=== PATIENT | female | born 1975 | race Caucasian/White ===

== ENCOUNTER 2020-10-04 00:18 | Emergency (ER) | payer OTHER ==
--- NOTE | 2020-10-04 00:32 | ERPHSYRPT ---
- History of Present Illness Time Seen by Provider: 10/04/20 00:30 Source: patient Exam Limitations: no limitations Physician History: Patient is a 45-year-old female presents to our ED as a referral from her LVAD coordinator and her recording studio setup worker. Patient has an LVAD that has been displaying low flow alert, low-speed alert and power disconnect. Patient states that she has been having issues with her LVAD since yesterday. Patient did change the batteries and states the batteries are currently new. Patient contacted her heart pump coordinator who advised her to come to our ED for emergent transport to [facility]. Patient's heart pump coordinator is name Maribell. Patient's recording studio setup worker is Dr. Johns. Per Roxana we should obtain basic labs including digoxin level, LDH, coags. Patient is on digoxin. Patient is on Coumadin. Patient is currently asymptomatic. Patient denies chest pain or shortness of breath. No nausea vomiting or diaphoresis. She has no complaints. Patient states she is only anxious because of the current situation regarding her LVAD. We are currently arranging for [facility] to fly our patient to [facility]. [facility] has been notified and accepted our patient. Patient is currently on not on the heart transplant list. Patient states her weight precludes her from being a heart transplant candidate. However she states she is trying to lose weight. Severity: mild Associated Symptoms: denies symptoms Allergies/Adverse Reactions: morphine Allergy (Severe, Verified 10/04/20 00:39) meperidine [From Demerol] Allergy (Intermediate, Verified 10/04/20 00:38) Itching Home Medications: Amiodarone HCl 200 mg PO DAILY 10/04/20 [History] Cefepime HCl 1 gm [Maxipime 1 gm] 1 gm IV TID 10/04/20 [History] Clonazepam 0.5 mg PO TID 10/04/20 [History] Digoxin 0.125 mg Tablet [Lanoxin 0.125MG TABLET] 1 tab PO DAILY 10/04/20 [History] Ferrous Sulfate [Iron] 325 mg PO DAILY 10/04/20 [History] Furosemide [Lasix] 20 mg PO DAILY PRN PRN 10/04/20 [History] Metoprolol Tartrate 25 mg PO DAILY 10/04/20 [History] Potassium Chloride 10 meq PO DAILY PRN PRN 10/04/20 [History] Sertraline HCl 50 mg [Zoloft 50 mg Tablet] 200 mg PO DAILY 10/04/20 [History] Vit B12/Folic Acid/B6/Aa No.15 [Glycotrol Capsule] 1 cap PO DAILY 10/04/20 [History] Warfarin Sodium 4 mg PO DAILY 10/04/20 [History] - Review of Systems Constitutional: No Symptoms, No Fever, No Chills Eyes: No Symptoms Ears, Nose, & Throat: No Symptoms Respiratory: No Symptoms, No Cough, No Dyspnea Cardiac: No Symptoms, No Chest Pain, No Edema, No Syncope Abdominal/Gastrointestinal: No Symptoms, No Abdominal Pain, No Nausea, No Vomiting, No Diarrhea Genitourinary Symptoms: No Symptoms, No Dysuria Musculoskeletal: No Symptoms, No Back Pain, No Neck Pain Skin: No Symptoms, No Rash Neurological: No Symptoms, No Dizziness, No Focal Weakness, No Sensory Changes Psychological: No Symptoms Endocrine: No Symptoms Hematologic/Lymphatic: No Symptoms Immunological/Allergic: No Symptoms All Other Systems: Reviewed and Negative - Nursing Vital Signs Nursing Vital Signs: Initial Vital Signs Pulse Rate 96 H 10/04/20 00:27 Respiratory Rate 18 10/04/20 00:27 O2 Sat by Pulse Oximetry 98 10/04/20 00:27 Pain Scale Pain Intensity 0 - Physical Exam General Appearance: no apparent distress, alert Eye Exam: PERRL/EOMI, eyes nml inspection Ears, Nose, Throat Exam: normal ENT inspection, TMs normal, pharynx normal, moist mucous membranes Neck Exam: normal inspection, non-tender, supple, full range of motion Respiratory Exam: normal breath sounds, lungs clear, airway intact, No respira tory distress Cardiovascular Exam: normal heart sounds, normal peripheral pulses, other (Machine whirring sound consistent with LVAD function. No palpable pulses consistent with LVAD function.) Gastrointestinal/Abdomen Exam: soft, normal bowel sounds, No tenderness, No mass Back Exam: normal inspection, normal range of motion, No CVA tenderness, No vertebral tenderness Extremity Exam: normal inspection, normal range of motion, pelvis stable Neurologic Exam: alert, oriented x 3, cooperative, normal mood/affect, nml cerebellar function, nml station & gait, sensation nml, No motor deficits Skin Exam: normal color, warm, dry, No rash Lymphatic Exam: No adenopathy SpO2 Interpretation: normal SpO2: 98 O2 Delivery: Room Air - Course Nursing assessment & vital signs reviewed: Yes Ordered Tests: Active Orders 24 hr Category Date Time Status [employer] Operations Manager STAT Care 10/04/20 00:28 Active IV Insertion STAT Care 10/04/20 00:28 Active Pulse Oximetry (ED) STAT Care 10/04/20 00:28 Active CBC W DIFF Stat Lab 10/04/20 00:25 Completed CMP Stat Lab 10/04/20 00:25 Received LDH-LACTATE DEHYDROGENASE Stat Lab 10/04/20 00:25 Received MAGNESIUM Stat Lab 10/04/20 00:25 Received PROTIME WITH INR Stat Lab 10/04/20 00:25 Received PTT Stat Lab 10/04/20 00:25 Received TROPONIN Q3H Lab 10/04/20 00:25 Received TROPONIN Q3H Lab 10/04/20 03:30 Ordered TROPONIN Q3H Lab 10/04/20 06:30 Ordered TROPONIN Q3H Lab 10/04/20 09:30 Ordered TROPONIN Q3H Lab 10/04/20 12:30 Ordered UA W/RFX UR CULTURE Stat Lab 10/04/20 00:28 Ordered Lab/Rad Data: Laboratory Result Diagrams 10/04/20 00:25 10/04/20 00:25 Laboratory Results 10/04/20 10/04/20 10/04/20 Range/Units 00:45 00:25 00:25 WBC (4.0-10.5) K/mm3 RBC (4.1-5.4) M/mm3 Hgb (12.0-16.0) gm/dl Hct (35-47) % MCV (78-100) fl MCH (26-32) pg MCHC (32-36) g/dl RDW (11.5-14.0) % Plt Count (150-450) K/mm3 MPV (7.5-11.0) fl Gran % (36.0-66.0) % Eos # (Auto) (0-0.5) Absolute Lymphs (auto) (1.0-4.6) Absolute Monos (auto) (0.0-1.3) Lymphocytes % (24.0-44.0) % Monocytes % (0.0-12.0) % Eosinophils % (0.00-5.0) % Basophils % (0.0-0.4) % Absolute Granulocytes (1.4-6.9) Basophils # (0-0.4) PT (9.95-12.35) SECONDS INR (0.8-3.0) APTT (25.3-37.0) SECONDS Sodium (137-145) mmol/L Potassium (3.5-5.1) mmol/L Chloride (98-107) mmol/L Carbon Dioxide (22-30) mmol/L Anion Gap (5-15) MEQ/L BUN (7-17) mg/dL Creatinine (0.52-1.04) mg/dL Estimated GFR ML/MIN Glucose (74-106) mg/dL Calcium (8.4-10.2) mg/dL Magnesium (1.6-2.3) mg/dL Total Bilirubin (0.2-1.3) mg/dL AST (14-36) U/L ALT (0-35) U/L Alkaline Phosphatase (38-126) U/L Lactate Dehydrogenase 264 H (120-246) U/L Serum Total Protein (6.3-8.2) g/dL Albumin (3.5-5.0) g/dL Urine Color YELLOW (YELLOW) Urine Appearance SLIGHTLY CLOUDY (CLEAR) Urine pH 5.0 (5-6) Ur Specific Innis 1.026 (1.005-1.025) Urine Protein NEGATIVE (Negative) Urine Ketones NEGATIVE (NEGATIVE) Urine Blood LARGE (0-5) Jhonatan/ul Urine Nitrite NEGATIVE (NEGATIVE) Urine Bilirubin NEGATIVE (NEGATIVE) Urine Urobilinogen NEGATIVE (0-1) mg/dL Ur Leukocyte Esterase NEGATIVE (NEGATIVE) Urine WBC (Auto) NONE (0-5) /HPF Urine RBC (Auto) 6-10 (0-2) /HPF U Hyaline Cast (Auto) 3-5 (0-2) /LPF U Epithel Cells (Auto) RARE (FEW) /HPF Urine Bacteria (Auto) NONE (NEGATIVE) /HPF Urine Mucus (Auto) SLIGHT (NEGATIVE) /HPF Urine Culture Reflexed NO (NO) Urine Glucose NEGATIVE (NEGATIVE) mg/dL Digoxin 0.6 L (0.8-1.9) ng/mL 10/04/20 10/04/20 10/04/20 Range/Units 00:25 00:25 00:25 WBC 9.8 (4.0-10.5) K/mm3 RBC 4.75 (4.1-5.4) M/mm3 Hgb 10.7 L (12.0-16.0) gm/dl Hct 36.1 (35-47) % MCV 76.0 L (78-100) fl MCH 22.5 L (26-32) pg MCHC 29.6 L (32-36) g/dl RDW 18.2 H (11.5-14.0) % Plt Count 242 (150-450) K/mm3 MPV 9.7 (7.5-11.0) fl Gran % 67.6 H (36.0-66.0) % Eos # (Auto) 0.37 (0-0.5) Absolute Lymphs (auto) 2.02 (1.0-4.6) Absolute Monos (auto) 0.76 (0.0-1.3) Lymphocytes % 20.7 L (24.0-44.0) % Monocytes % 7.8 (0.0-12.0) % Eosinophils % 3.8 (0.00-5.0) % Basophils % 0.1 (0.0-0.4) % Absolute Granulocytes 6.62 (1.4-6.9) Basophils # 0.01 (0-0.4) PT 29.9 H (9.95-12.35) SECONDS INR 2.62 (0.8-3.0) APTT 44.3 H (25.3-37.0) SECONDS Sodium 140 (137-145) mmol/L Potassium 3.7 (3.5-5.1) mmol/L Chloride 103 (98-107) mmol/L Carbon Dioxide 27 (22-30) mmol/L Anion Gap 13.4 (5-15) MEQ/L BUN 19 H (7-17) mg/dL Creatinine 0.97 (0.52-1.04) mg/dL Estimated GFR > 60.0 ML/MIN Glucose 116 H (74-106) mg/dL Calcium 9.2 (8.4-10.2) mg/dL Magnesium 2.2 (1.6-2.3) mg/dL Total Bilirubin 0.50 (0.2-1.3) mg/dL AST 33 (14-36) U/L ALT 22 (0-35) U/L Alkaline Phosphatase 91 (38-126) U/L Lactate Dehydrogenase (120-246) U/L Serum Total Protein 8.7 H (6.3-8.2) g/dL Albumin 4.2 (3.5-5.0) g/dL Urine Color (YELLOW) Urine Appearance (CLEAR) Urine pH (5-6) Ur Specific Innis (1.005-1.025) Urine Protein (Negative) Urine Ketones (NEGATIVE) Urine Blood (0-5) Jhonatan/ul Urine Nitrite (NEGATIVE) Urine Bilirubin (NEGATIVE) Urine Urobilinogen (0-1) mg/dL Ur Leukocyte Esterase (NEGATIVE) Urine WBC (Auto) (0-5) /HPF Urine RBC (Auto) (0-2) /HPF U Hyaline Cast (Auto) (0-2) /LPF U Epithel Cells (Auto) (FEW) /HPF Urine Bacteria (Auto) (NEGATIVE) /HPF Urine Mucus (Auto) (NEGATIVE) /HPF Urine Culture Reflexed (NO) Urine Glucose (NEGATIVE) mg/dL Digoxin (0.8-1.9) ng/mL - Progress Progress: improved Progress Note: Portions of this note were created with voice recognition technology. There may be grammatical, spelling, punctuation or sound alike errors 10/04/20 00:45 10/04/20 00:48 Patient reassessed. She remains asymptomatic. Patient has a microcytic anemia observed on her CBC. Hemoglobin 10.7. MCV 76. Coagulation profile shows an INR of 2.62. Patient is on Coumadin. LDH is 264. Chemistry appears to be within normal limits. Digoxin level marginally low at 0.6. Hematuria observed and urinalysis. Patient advised that she is currently on her menstrual period. No further intervention indicated at this time. We will transfer to [facility] via [facility] helicopter. Plan of care discussed with patient. Patient agrees with transfer to [facility] via [facility]. Patient's recording studio setup worker Dr. Johns awaits patient's arrival. 10/04/20 00:51 10/04/20 00:52 10/04/20 00:54 10/04/20 01:00 Counseled pt/family regarding: lab results, diagnosis - Departure Departure Disposition: Transfer (Patient will be transferred to [facility] under the care of Dr. Johns) Clinical Impression: Left ventricular assist device (LVAD) complication, Microcytic anemia, Hematuria Condition: Stable Critical Care Time: No Additional Instructions: Discharge/Care Plan MAXIMEPADDY DILLARD was seen on 10/04/20 in the Emergency Room. The patient was counseled regarding Diagnosis,Lab results, Imaging studies, need for follow up and when to return to the Emergency Room. Prescriptions given: Discharge Note I have spoken with the patient and/or caregivers. I have explained the patient's condition, diagnosis and treatment plan based on the information available to edgardo gilbert at this time. I have answered the patient's and/or caregiver's questions and addressed any concerns. The patient and/or caregivers have as good understanding of the patient's diagnosis, condition and treatment plan as can be expected at this point. The vital signs have been stable. The patient's condition is stable and appropriate for discharge from the emergency department. The patient will pursue further outpatient evaluation with the primary care physician or other designated or consulting physician as outlined in the discharge instructions. The patient and/or caregivers are agreeable to this plan of care and follow-up instructions have been explained in detail. The patient and/or caregivers have received these instruction. The patient/and or caregivers are aware that any significant change in condition or worsening of symptoms should prompt an immediate return to this or the closest emergency department or call 911.
[2020-10-04 00:34] LABS: Absolute Neutrophil Ct (ANC) 6.62 (1.4-6.9); BASOPHIL % 0.1 % (0.0-0.4); Basophil (Absolute #) 0.01 (0-0.4); Eosinophil % 3.8 % (0.00-5.0); Eosinophil (Absolute #) 0.37 (0-0.5); Hematocrit 36.1 % (35-47); Hemoglobin 10.7 gm/dl (12.0-16.0); Lymphocyte (Absolute #) 2.02 (1.0-4.6); Lymphocytes % 20.7 % (24.0-44.0); Mean Corpuscular Hemoglobin 22.5 pg (26-32); Mean Corpuscular Hgb Concent. 29.6 g/dl (32-36); Mean Platelet Volume 9.7 fl (7.5-11.0); Monocyte (Absolute #) 0.76 (0.0-1.3); Monocytes % 7.8 % (0.0-12.0); Neutrophil % 67.6 % (36.0-66.0); Platelet Count 242 K/mm3 (150-450); Red Blood Count 4.75 M/mm3 (4.1-5.4); Red Cell Distribution Width 18.2 % (11.5-14.0); White Blood Count 9.8 K/mm3 (4.0-10.5)
[2020-10-04 00:42] LABS: INR 2.62 (0.8-3.0); PROTIME 29.9 SECONDS (9.95-12.35)
[2020-10-04 00:45] LABS: PTT 44.3 SECONDS (25.3-37.0)
[2020-10-04 00:49] LABS: ALBUMIN 4.2 g/dL (3.5-5.0); ALKALINE PHOSPHATASE 91 U/L (38-126); ANION GAP 13.4 MEQ/L (5-15); BLOOD UREA NITROGEN 19 mg/dL (7-17); CHLORIDE 103 mmol/L (98-107); Calcium 9.2 mg/dL (8.4-10.2); Carbon Dioxide 27 mmol/L (22-30); Creatinine 1 0.97 mg/dL (0.52-1.04); EST GLOMERULAR FILTRATION RATE > 60.0 ML/MIN; Glucose 116 mg/dL (74-106); MAGNESIUM 2.2 mg/dL (1.6-2.3); Potassium 3.7 mmol/L (3.5-5.1); SGOT/AST 33 U/L (14-36); SGPT/ALT 22 U/L (0-35); SODIUM 140 mmol/L (137-145); Total Protein 8.7 g/dL (6.3-8.2)
[2020-10-04 00:56] LABS: Appearance SLIGHTLY CLOUDY (CLEAR); Bilirubin NEGATIVE (NEGATIVE); Blood LARGE Ery/ul (0-5); Epithelial Cells RARE /HPF (FEW); Glucose NEGATIVE (NEGATIVE); Ketones NEGATIVE (NEGATIVE); Leukocyte Esterase NEGATIVE (NEGATIVE); Mucus SLIGHT /HPF (NEGATIVE); Nitrite NEGATIVE (NEGATIVE); Protein,Urine Dip NEGATIVE (Negative); Specific Gravity 1.026 (1.005-1.025); Urobilinogen NEGATIVE mg/dL (0-1)
[2020-10-04 01:25] VITALS: PULSE 92; O2SAT 97
== END 2020-10-04 01:18 | disposition short-term general hospital (02) ==
LOC: ED 00:18
DX: T82.598A Other mechanical complication of other cardiac and vascular devices and implants, initial encounter (principal); D50.9 Iron deficiency anemia, unspecified; R31.9 Hematuria, unspecified; Z79.01 Long term (current) use of anticoagulants; Z79.899 Other long term (current) drug therapy
CPT/HCPCS: 36000; 36415; 80053; 80162; 81001; 83615; 83735; 84484; 85025; 85610; 85730; 93041; 94760; 99284

== ENCOUNTER 2022-07-09 18:10 | Emergency (ER) | payer OTHER ==
[2022-07-09] MEDS ORDERED: Cordarone 150 MG/3 ML Injection IV ONE (18:42)
--- NOTE | 2022-07-09 18:43 | ERPHSYRPT ---
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 On presentation she has a heart rate in low 100s. Patient reports she has multiple episodes similar to this where she went into atrial flutter needing chemical or electrical cardioversion. She denies any chest pain or difficulty breathing. No fever or chills reported. Patient reports earlier she was feeling some lightheadedness which is improved now. Timing/Duration: hour(s) (.5), intermittent, sudden, improved Severity: moderate Modifying Factors: Improves With: nothing Associated Symptoms: denies symptoms Allergies/Adverse Reactions: morphine Allergy (Severe, Verified 07/09/22 18:22) meperidine [From Demerol] Allergy (Intermediate, Verified 07/09/22 18:22) Itching perflutren [From Definity] Adverse Reaction (Verified 07/09/22 18:49) Home Medications: Amiodarone HCl 200 mg PO DAILY 10/04/20 [History] Cefepime HCl 1 gm [Maxipime 1 gm] 1 gm IV TID 10/04/20 [History] Digoxin 0.125 mg Tablet [Lanoxin 0.125MG TABLET] 1 tab PO DAILY 10/04/20 [History] Ferrous Sulfate [Iron] 325 mg PO DAILY 10/04/20 [History] Furosemide [Lasix] 20 mg PO DAILY PRN PRN 10/04/20 [History] Metoprolol Tartrate 25 mg PO DAILY 10/04/20 [History] Potassium Chloride 10 meq PO DAILY PRN PRN 10/04/20 [History] Sertraline HCl 50 mg [Zoloft 50 mg Tablet] 200 mg PO DAILY 10/04/20 [History] Vit B12/Folic Acid/B6/Aa No.15 [Glycotrol Capsule] 1 cap PO DAILY 10/04/20 [History] Warfarin Sodium 4 mg PO DAILY 10/04/20 [History] clonazePAM [Clonazepam] 0.5 mg PO TID 10/04/20 [History] Hx Tetanus, Diphtheria Vaccination/Date Given: Yes Hx Influenza Vaccination/Date Given: Yes Hx Pneumococcal Vaccination/Date Given: Yes Travel Risk - Vaccine Status Have you recieved a Covid-19 vaccination: Yes Plan Examiner: Moderna - Vaccination Dates Date of 2cond Vaccination (if applicable): N/A Comment: 2ND SHOT SCHEDULED 10/09/20 - Review of Systems Constitutional: No Symptoms Eyes: No Symptoms Ears, Nose, & Throat: No Symptoms Respiratory: No Symptoms Cardiac: Palpitations Abdominal/Gastrointestinal: No Symptoms Genitourinary Symptoms: No Symptoms Musculoskeletal: No Symptoms Skin: No Symptoms Neurological: No Symptoms Psychological: No Symptoms Endocrine: No Symptoms Hematologic/Lymphatic: No Symptoms Immunological/Allergic: No Symptoms - Past Medical History Pertinent Past Medical History: Yes Neurological History: No Pertinent History ENT History: No Pertinent History Cardiac History: Arrhythmia, Congestive Heart Failure Respiratory History: CHF Endocrine Medical History: No Pertinent History Musculoskeletal History: No Pertinent History GI Medical History: Gallbladder Disease History: No Pertinent History Psycho-Social History: Anxiety Female Reproductive Disorders: No Pertinent History - Past Surgical History Past Surgical History: Yes Neuro Surgical History: No Pertinent History Cardiac: Cardiac Catheterization, Internal Defibrillator Respiratory: No Pertinent History Gastrointestinal: Cholecystectomy Musculoskeletal: No Pertinent History Female Surgical History: Hysterectomy, Section Other Surgical History: ICD. LVAD - Social History Smoking Status: Never smoker Exposure to second hand smoke: No Drug Use: none Patient Lives Alone: Yes - Female History Hx Now: (unkn) - Nursing Vital Signs Nursing Vital Signs: Initial Vital Signs Temperature 97.5 F 07/09/22 18:23 Pulse Rate 108 H 07/09/22 18:23 Respiratory Rate 20 07/09/22 18:23 O2 Sat by Pulse Oximetry 98 07/09/22 18:23 Pain Scale Pain Intensity 0 - Physical Exam General Appearance: no apparent distress, alert, anxiety Eye Exam: PERRL/EOMI Ears, Nose, Throat Exam: normal ENT inspection Neck Exam: normal inspection, supple, full range of motion Respiratory Exam: normal breath sounds Cardiovascular Exam: tachycardia, No normal heart sounds Gastrointestinal/Abdomen Exam: soft, No tenderness Back Exam: normal inspection Extremity Exam: normal inspection, normal range of motion Neurologic Exam: alert, oriented x 3, cooperative Skin Exam: normal color SpO2 Interpretation: normal SpO2: 96 O2 Delivery: Room Air - Course EKG Interpreted by Me: RATE (108), Sinus Rhythm, Left Butler Deviation, Q-wave, Non-specific ST Changes, Other (PVCs) Ordered Tests: Active Orders 24 hr Category Date Time Status TROPONIN Q4H Lab 07/10/22 02:45 Ordered Medication Summary Discontinued Medications Generic Name Dose Route Start Last Admin Trade Name Jimena PRN Reason Stop Dose Admin Amiodarone HCl 150 mg 07/09/22 18:42 07/09/22 18:53 Amiodarone Hcl 150 Mg/3 Ml Vial IV 07/09/22 18:43 150 mg STAT ONE Administration Amiodarone HCl Confirm 07/09/22 18:52 Amiodarone Hcl 150 Mg/3 Ml Vial Administered 07/09/22 18:53 Dose 150 mg .ROUTE .STK-MED ONE Dextrose Confirm 07/09/22 18:52 D5w 100ml Mini Bag 100 Ml Administered 07/09/22 18:53 Dose 100 mls @ ud IV .STK-MED ONE Lorazepam 1 mg 07/09/22 19:03 07/09/22 19:07 Lorazepam 2 Mg/1 Ml 2 Mg Vial IV 07/09/22 19:04 1 mg STAT ONE Administration Lorazepam Confirm 07/09/22 19:05 Lorazepam 2 Mg/1 Ml 2 Mg Vial Administered 07/09/22 19:06 Dose 2 mg .ROUTE .STK-MED ONE - Progress Progress: improved, re-examined Progress Note: 07/09/22 19:34 47 years old with history of familial cardiomyopathy on LVAD for 10 years managed by [facility] advanced [facility] failure team, anticoagulated on Coumadin with history of multiple episodes of atrial flutter presented in the ER with palpitations and heart rate ranging between 60-1 50 with some lightheadedness. Currently on presentation her heart rate is in low 100s and not feeling lightheaded. Denies any chest pain or shortness of breath. No fever chills or sick contact reported. Not in any distress at all. EKG shows normal sinus rhythm with no ST elevations and some PVCs. I have reviewed EKG with Dr. Johns from [facility] who has seen EKG, does agree that patient is not in atrial flutter. Patient has not been taking amiodarone lately and is only on beta- mechelle. Recommended giving one-time dose of 150 IV amiodarone and patient would be restarted on amiodarone 200 mg p.o. daily and outpatient follow-up. Did not recommend any other work-up. Patient does not have any other complaints. Heart rate is in 90s to 110. Does have variability and no fixed number. Patient was very anxious, given Ativan and feeling much better. She is thoroughly counseled and she seems understanding and is appropriately knowledgeable about her condition as well. Discussed signs symptoms of worsening needing return to ER which she sounds acknowledging. Recommended outpatient follow-up. Discussed with Dr.: Other ( [facility] advanced heart failure refinisher) Counseled pt/family regarding: diagnosis, need for follow-up - Departure Departure Disposition: Home Clinical Impression: Heart palpitations Condition: Stable Critical Care Time: No Referrals: VERNON WILDE [Primary Care Provider] - Follow up/PCP as directed (1-2 days for reevaluation) BORCK JOHNS MD [NON-STAFF PHY W/O PRIVILEGES] - Follow up/PCP as directed (Call in the morning for appointment for reevaluation) Instructions: Arrhythmias (DC), Palpitations (DC) Additional Instructions: Follow-up with your primary care and refinisher for reevaluation. Call for appointment in the morning. Monitor your heart rate and return for any worsening. Restart taking amiodarone 200 mg daily. Prescriptions: Amiodarone HCl 200 mg [Cordarone 200 MG] 200 mg PO DAILY #30 tab
[2022-07-09] MEDS ORDERED: D5w 100ML Mini Bag 100 ML 100 ML IV ONE (18:52)
[2022-07-09] MEDS ORDERED: Cordarone 150 MG/3 ML Injection ONE (18:52)
[2022-07-09] MEDS ORDERED: Ativan 2 MG/1 ML VIAL IV ONE (19:03)
[2022-07-09 19:05] VITALS: O2SAT 96
[2022-07-09] MEDS ORDERED: Ativan 2 MG/1 ML VIAL ONE (19:05)
[2022-07-09 19:57] VITALS: PULSE 94
== END 2022-07-09 19:57 | disposition home or self-care (01) ==
LOC: ED 18:10
DX: R00.2 Palpitations (principal); I50.9 Heart failure, unspecified; Z79.01 Long term (current) use of anticoagulants; Z79.899 Other long term (current) drug therapy
CPT/HCPCS: 96374; 96375; 99283; J0282; J2060